=== PATIENT | female | born 1940 | race Caucasian/White ===

== ENCOUNTER 2016-10-27 17:20 | Emergency (ER) | payer OTHER ==
[~2016-10-27 17:20] MED LIST: BACLOFEN10 MG PO; BAYER ASPIRIN325 M1 PO; BENAZEPRIL HCL40 MG PO; CALCIUM CARBON500 MG PO; CINNAMON500 MG PO; CLOBETASOL PRO0.055; COQ-10400 MG PO; CR-PLUS500 MCG PO; FISH OIL1000 M1 PO; GABAPENTIN300 MG PO; HYDROCHLOROTHIA25 MG PO; KLOR-CON 1010 MEQ PO; LIPITOR40 MG PO; MAGNESIUM400 M1 PO; METHOCARBAMOL500 MG PO; NEURONTIN300 MG PO; NORVASC5 MG PO; OMEPRAZOLE20 M1 PO; TUMERIC; VALERIAN ROOT PO; VITAMIN C500 M1 PO; VITAMIN D-31000 UNIT PO; VITAMIN K100 MCG PO; VITAPULSE; ZINC; [UNRECOGNIZED DRUG - OTHER]; [UNRECOGNIZED DRUG - OTHER] PO
--- NOTE | 2016-10-27 20:07 | ED ORDER SUMMARY ---
..... Patient: ANTOINETTE KAUR OrderSheet [facility] VisitID: [id number] [address] [place] [address] 76y, F Registration Date/Time: 10/27/2016 ORDER SHEET Weight: 99.7 kg (stated) Allergies: Darvocet-N 50, Percocet GENERAL ORDERS: MEDICATION ORDERS: Prednisone PO 60 mg (NOW) (20:01 10/27/2016 Xenia AMBRIZ) (20:11 Mahin Loo) IV FLUIDS: ORDER SHEET NOTES: [Electronically signed by Abundio Valladares R.N. (20:22 10/27/2016)] [Electronically signed by Hilario Calderon MD (22:32 11/01/2016)] [Electronically locked/signed by Abundio Valladares R.N. (20:22 10/27/2016)]
--- NOTE | 2016-10-27 20:07 | ED ORDER SUMMARY ---
..... Patient: ANTOINETTE KAUR OrderSheet [facility] VisitID: [id number] [address] [place] [address] 76y, F Registration Date/Time: 10/27/2016 ORDER SHEET Weight: 99.7 kg (stated) Allergies: Darvocet-N 50, Percocet GENERAL ORDERS: MEDICATION ORDERS: Prednisone PO 60 mg (NOW) (20:01 10/27/2016 Xenia AMBRIZ) (20:11 Mahin Loo) IV FLUIDS: ORDER SHEET NOTES: [Electronically signed by Abundio Valladares R.N. (20:22 10/27/2016)] [Electronically signed by Hilario Calderon MD (22:32 11/01/2016)] [Electronically locked/signed by Abundio Valladares R.N. (20:22 10/27/2016)]
--- NOTE | 2016-10-27 20:07 | ED NURSING NOTES ---
Clinical Report - Nurses [facility] [address] [place] [address] 10/27/2016 17:21 Patient: ANTOINETTE KAUR TRIAGE Triage time 18:18 Oct 27 2016. Acuity: LEVEL 5. Chief Complaint: SKIN RASH and SKIN LESION and TENDER AREA and . reaction to a med. Alert. No acute distress. --18:23 Maria Eugenia Peraza R.N. 18:17 10/27/16. BP: 157/62. HR: 80. RR: 18. O2 saturation: 97%. Temp: 98.2 F. Pain level now 08/04. --18:23 Maria Eugenia Peraza R.N. Weight: 99.7 kg stated. Height/Length: 62 inches Per Patient. BMI: 40.2. --18:17 Maria Eugenia Peraza R.N. Medications Albuterol Sulfate Inhalation. Flexeril Oral 10 mg, at bedtime. Gabapentin Oral 150mg , 2x a day. HCTZ 12.5 mg, daily. Lotensin Oral 40 mg, daily. Meclizine HCl Oral 50 mg, daily as needed. Nasacort AQ Nasal, started 2 days ago. Prilosec Oral 40 mg, daily. Spiriva HandiHaler Inhalation. Tylenol/Codeine #3 Oral 1 tablet, 4x a day as needed. Vistaril Oral 50 mg, at bedtime as needed. --18:21 Maria Eugenia Peraza R.N. Allergies Darvocet-N 50. Percocet. --18:21 Maria Eugenia Peraza R.N. History Primary physician (Dr. Friedman). ( Rash and cracked skin all over hands, ankles up to her knees. Red sores, painful. Started 3 weeks ago. Today it has spread to her lips and now she is concerned.). Reported as generalized in location. It is described as painful. She has recently taken medication. Treatment OUTREACH EDUCATOR: (has used home remedies and OTC topical, no change). PAST MEDICAL HX: Immunizations: has received pneumonia vaccine; seasonal influenza. SOCIAL HX: Former smoker. Occasional alcohol use. History of drug use: marijuana. No infectious disease exposure. FALL RISK ASSESSMENT: Fall risk assessment completed. No fall risk identified. NUTRITIONAL RISK ASSESSMENT: The nutritional risk assessment revealed no deficiencies. FUNCTIONAL ASSESSMENT: Functional assessment: no impairments noted. LEARNING NEEDS ASSESSMENT: The learning needs assessment revealed no barriers. SKIN INTEGRITY ASSESSMENT: Skin integrity risk assessment completed. No skin integrity risk identified. --18:23 Maria Eugenia Peraza R.N. PROBLEMS: Anemia. Allergic Reaction. COPD - Chronic Obstructive Pulmonary Disease. Fall. Contusion. Bronchitis. GI Disease. Myofascial Strain. Tetanus Status. Neck Pain. Immunizations. LNMP - Last Normal Menstrual Period. Dyspnea. URI. Pneumonia. UTI - Urinary Tract Infection. Hypertension. Gastroesophageal Reflux Disease. --18:22 Maria Eugenia Peraza R.N. ADDITIONAL SURGERIES: Adenoidectomy. Appendectomy. Cholecystectomy. Hysterectomy. Knee Surgery. Oophorectomy. Salpingectomy. Surgeries on both legs. Tonsillectomy. Tonsillectomy & Adenoidectomy. --18:22 Maria Eugenia Peraza R.N. Interventions ID band on patient. To room. --18:23 Maria Eugenia Peraza R.N. NURSING PROGRESS NOTES 19:46 10/27/16. BP: 155/73. HR: 83. RR: 16. O2 saturation: 95%. Temp: 98.1 F. --19:46 Abundio Valladares R.N. The patient is calm and resting quietly. SKIN: The patient reports itching and swelling. Skin rash. Location- right arm and left arm. --19:47 Abundio Valladares R.N. 20:01 10/27/16. BP: 123/69. HR: 82. RR: 16. O2 saturation: 96%. --20:01 Abundio Valladares R.N. 20:11 10/27/2016 Prednisone PO Tablets 60 mg given. Allergies verified and confirmed 5 rights. --20:11 Abundio Valladares R.N. DISPOSITION / DISCHARGE Condition at departure: improved. The goals identified in the patient's plan of care were met. No learning barriers present. Reviewed medication(s). Patient verbalized understanding. Written instructions provided in Malaysian. The patient was discharged home and unaccompanied at time of discharge. She left the Emergency Department ambulatory and via private vehicle. Patient driving. FALL RISK ASSESSMENT: Fall risk assessment completed. No fall risk identified. --20:21 Abundio Valladares R.N. Departure time: 2020 PM. --20:21 Abundio Valladares R.N. Locked/Released at 10/27/2016 20:22 by Abundio Valladares R.N.
--- NOTE | 2016-10-27 20:07 | ED CLINICAL REPORT ---
Clinical Report - Physicians/Mid Levels [facility] [address] [place] [address] 10/27/2016 17:21 Patient: ANTOINETTE KAUR Time Seen: 19:48. HISTORY OF PRESENT ILLNESS Chief Complaint: SKIN RASH. (3 r hand. lots of hand dishes spread to other hand 7 days ago). Is still present and worsening. It was gradual in onset. It is described as itchy and painful. It has been located on the right upper extremity and left upper extremity. No cause has been identified. No recent medication or insect bite. Similar symptoms previously: None. REVIEW OF SYSTEMS No fever, chills, cough, difficulty breathing or chest pain. No abdominal pain. PAST HISTORY PCP: Mayi Mcnally PROBLEMS: Anemia. Allergic Reaction. COPD - Chronic Obstructive Pulmonary Disease. Fall. Contusion. Bronchitis. GI Disease. Myofascial Strain. Tetanus Status. Neck Pain. Immunizations. LNMP - Last Normal Menstrual Period. Dyspnea. URI. Pneumonia. UTI - Urinary Tract Infection. Hypertension. Gastroesophageal Reflux Disease. --18:22 Maria Eugenia Peraza R.N. ADDITIONAL SURGERIES: Adenoidectomy. Appendectomy. Cholecystectomy. Hysterectomy. Knee Surgery. Oophorectomy. Salpingectomy. Surgeries on both legs. Tonsillectomy. Tonsillectomy & Adenoidectomy. SOCIAL HISTORY Former smoker. ADDITIONAL NOTES The nursing notes have been reviewed. PHYSICAL EXAM Vital Signs: 10/27/2016 20:01 BP: 123/69. HR: 82. RR: 16. O2 saturation: 96%. 10/27/2016 19:46 BP: 155/73. HR: 83. RR: 16. O2 saturation: 95%. Temp: 98.1 F. 10/27/2016 18:17 BP: 157/62. HR: 80. RR: 18. O2 saturation: 97%. Temp: 98.2 F. Appearance: Alert. Patient in mild distress. ENT: Pharynx normal. Respiratory: No respiratory distress. Breath sounds normal. Abdomen: Nontender. No organomegaly. Skin: There is warmth, induration, thickening, inflammation and crusting. (Pt has patches of inflamed erythamatous patches with scale but no bullae or petechiae. Most of these lesions are on the upper extemities but there are some on the lower extemities.). PROGRESS AND PROCEDURES Course of Care: Note, I intended for her to only get the triamcinolone cream. The cause of the dermatitis is not clear. This does not look like Pleitez Jaiden syndrome because of lack of blisters. Disposition: Discharged. CLINICAL IMPRESSION DERMATITIS. INSTRUCTIONS (FLORINDA OR BENADRYL FOR ITCH KAILASH CREAM FOR MOISTURIZING). Prescription Medications: Hydrocortisone 2.5% Cream: Apply to affected areas 2 times daily as needed. Dispense twenty (20) gm. No refills. Substitution is permissible. Triamcinolone 0.1% Cream: Apply to affected areas 2 times daily as needed. Dispense fifteen (15) gm. No refills. Prednisone 20 mg: take 2 orally every day for 5 days. Dispense ten (10). No refills. Follow-up: Follow up with your doctor in five days. Call for an appointment. Understanding of the discharge instructions verbalized by patient. (Electronically signed by Hilario Calderon MD 11/01/2016 22:32)
--- NOTE | 2016-10-27 20:07 | ED CLINICAL REPORT ---
Clinical Report - Physicians/Mid Levels [facility] [address] [place] [address] 10/27/2016 17:21 Patient: ANTOINETTE KAUR Time Seen: 19:48. HISTORY OF PRESENT ILLNESS Chief Complaint: SKIN RASH. (3 r hand. lots of hand dishes spread to other hand 7 days ago). Is still present and worsening. It was gradual in onset. It is described as itchy and painful. It has been located on the right upper extremity and left upper extremity. No cause has been identified. No recent medication or insect bite. Similar symptoms previously: None. REVIEW OF SYSTEMS No fever, chills, cough, difficulty breathing or chest pain. No abdominal pain. PAST HISTORY PCP: Mayi Mcnally PROBLEMS: Anemia. Allergic Reaction. COPD - Chronic Obstructive Pulmonary Disease. Fall. Contusion. Bronchitis. GI Disease. Myofascial Strain. Tetanus Status. Neck Pain. Immunizations. LNMP - Last Normal Menstrual Period. Dyspnea. URI. Pneumonia. UTI - Urinary Tract Infection. Hypertension. Gastroesophageal Reflux Disease. --18:22 Maria Eugenia Peraza R.N. ADDITIONAL SURGERIES: Adenoidectomy. Appendectomy. Cholecystectomy. Hysterectomy. Knee Surgery. Oophorectomy. Salpingectomy. Surgeries on both legs. Tonsillectomy. Tonsillectomy & Adenoidectomy. SOCIAL HISTORY Former smoker. ADDITIONAL NOTES The nursing notes have been reviewed. PHYSICAL EXAM Vital Signs: 10/27/2016 20:01 BP: 123/69. HR: 82. RR: 16. O2 saturation: 96%. 10/27/2016 19:46 BP: 155/73. HR: 83. RR: 16. O2 saturation: 95%. Temp: 98.1 F. 10/27/2016 18:17 BP: 157/62. HR: 80. RR: 18. O2 saturation: 97%. Temp: 98.2 F. Appearance: Alert. Patient in mild distress. ENT: Pharynx normal. Respiratory: No respiratory distress. Breath sounds normal. Abdomen: Nontender. No organomegaly. Skin: There is warmth, induration, thickening, inflammation and crusting. (Pt has patches of inflamed erythamatous patches with scale but no bullae or petechiae. Most of these lesions are on the upper extemities but there are some on the lower extemities.). PROGRESS AND PROCEDURES Course of Care: Note, I intended for her to only get the triamcinolone cream. The cause of the dermatitis is not clear. This does not look like Pleitez Jaiden syndrome because of lack of blisters. Disposition: Discharged. CLINICAL IMPRESSION DERMATITIS. INSTRUCTIONS (FLORINDA OR BENADRYL FOR ITCH KAILASH CREAM FOR MOISTURIZING). Prescription Medications: Hydrocortisone 2.5% Cream: Apply to affected areas 2 times daily as needed. Dispense twenty (20) gm. No refills. Substitution is permissible. Triamcinolone 0.1% Cream: Apply to affected areas 2 times daily as needed. Dispense fifteen (15) gm. No refills. Prednisone 20 mg: take 2 orally every day for 5 days. Dispense ten (10). No refills. Follow-up: Follow up with your doctor in five days. Call for an appointment. Understanding of the discharge instructions verbalized by patient. (Electronically signed by Hilario Calderon MD 11/01/2016 22:32)
--- NOTE | 2016-10-27 20:07 | ED NURSING NOTES ---
Clinical Report - Nurses [facility] [address] [place] [address] 10/27/2016 17:21 Patient: ANTOINETTE KAUR TRIAGE Triage time 18:18 Oct 27 2016. Acuity: LEVEL 5. Chief Complaint: SKIN RASH and SKIN LESION and TENDER AREA and . reaction to a med. Alert. No acute distress. --18:23 Maria Eugenia Peraza R.N. 18:17 10/27/16. BP: 157/62. HR: 80. RR: 18. O2 saturation: 97%. Temp: 98.2 F. Pain level now 08/04. --18:23 Maria Eugenia Peraza R.N. Weight: 99.7 kg stated. Height/Length: 62 inches Per Patient. BMI: 40.2. --18:17 Maria Eugenia Peraza R.N. Medications Albuterol Sulfate Inhalation. Flexeril Oral 10 mg, at bedtime. Gabapentin Oral 150mg , 2x a day. HCTZ 12.5 mg, daily. Lotensin Oral 40 mg, daily. Meclizine HCl Oral 50 mg, daily as needed. Nasacort AQ Nasal, started 2 days ago. Prilosec Oral 40 mg, daily. Spiriva HandiHaler Inhalation. Tylenol/Codeine #3 Oral 1 tablet, 4x a day as needed. Vistaril Oral 50 mg, at bedtime as needed. --18:21 Maria Eugenia Peraza R.N. Allergies Darvocet-N 50. Percocet. --18:21 Maria Eugenia Peraza R.N. History Primary physician (Dr. Friedman). ( Rash and cracked skin all over hands, ankles up to her knees. Red sores, painful. Started 3 weeks ago. Today it has spread to her lips and now she is concerned.). Reported as generalized in location. It is described as painful. She has recently taken medication. Treatment DIRECTOR FINANCIAL SERVICES: (has used home remedies and OTC topical, no change). PAST MEDICAL HX: Immunizations: has received pneumonia vaccine; seasonal influenza. SOCIAL HX: Former smoker. Occasional alcohol use. History of drug use: marijuana. No infectious disease exposure. FALL RISK ASSESSMENT: Fall risk assessment completed. No fall risk identified. NUTRITIONAL RISK ASSESSMENT: The nutritional risk assessment revealed no deficiencies. FUNCTIONAL ASSESSMENT: Functional assessment: no impairments noted. LEARNING NEEDS ASSESSMENT: The learning needs assessment revealed no barriers. SKIN INTEGRITY ASSESSMENT: Skin integrity risk assessment completed. No skin integrity risk identified. --18:23 Maria Eugenia Peraza R.N. PROBLEMS: Anemia. Allergic Reaction. COPD - Chronic Obstructive Pulmonary Disease. Fall. Contusion. Bronchitis. GI Disease. Myofascial Strain. Tetanus Status. Neck Pain. Immunizations. LNMP - Last Normal Menstrual Period. Dyspnea. URI. Pneumonia. UTI - Urinary Tract Infection. Hypertension. Gastroesophageal Reflux Disease. --18:22 Maria Eugenia Peraza R.N. ADDITIONAL SURGERIES: Adenoidectomy. Appendectomy. Cholecystectomy. Hysterectomy. Knee Surgery. Oophorectomy. Salpingectomy. Surgeries on both legs. Tonsillectomy. Tonsillectomy & Adenoidectomy. --18:22 Maria Eugenia Peraza R.N. Interventions ID band on patient. To room. --18:23 Maria Eugenia Peraza R.N. NURSING PROGRESS NOTES 19:46 10/27/16. BP: 155/73. HR: 83. RR: 16. O2 saturation: 95%. Temp: 98.1 F. --19:46 Abundio Valladares R.N. The patient is calm and resting quietly. SKIN: The patient reports itching and swelling. Skin rash. Location- right arm and left arm. --19:47 Abundio Valladares R.N. 20:01 10/27/16. BP: 123/69. HR: 82. RR: 16. O2 saturation: 96%. --20:01 Abundio Valladares R.N. 20:11 10/27/2016 Prednisone PO Tablets 60 mg given. Allergies verified and confirmed 5 rights. --20:11 Abundio Valladares R.N. DISPOSITION / DISCHARGE Condition at departure: improved. The goals identified in the patient's plan of care were met. No learning barriers present. Reviewed medication(s). Patient verbalized understanding. Written instructions provided in Bahraini. The patient was discharged home and unaccompanied at time of discharge. She left the Emergency Department ambulatory and via private vehicle. Patient driving. FALL RISK ASSESSMENT: Fall risk assessment completed. No fall risk identified. --20:21 Abundio Valladares R.N. Departure time: 2020 PM. --20:21 Abundio Valladares R.N. Locked/Released at 10/27/2016 20:22 by Abundio Valladares R.N.
--- NOTE | 2016-11-01 22:33 | ED MAR SUMMARY ---
..... Medication Administration Record [facility] [address] [place] [address] Patient: ANTOINETTE KAUR Visit ID: [id number] 76y, F Weight: 99.7 kg Height/Length: 62 in BMI: 40.2 ALLERGIES: Darvocet-N 50, Percocet Given 20:11 10/27/2016 Abundio Valladares R.N. Medication Administered: PREDNISONE [PO], Dose: 60 mg Tablets PO. Medication Ordered: Prednisone PO 60 mg (NOW).
--- NOTE | 2016-11-01 22:33 | ED DISCHARGE INSTRUCTIONS ---
Patient: ANTOINETTE KAUR General Instructions [facility] VisitID: [id number] [address] [place] [address] 76y, F Registration Date/Time: 10/27/2016 DERMATITIS. INSTRUCTIONS (FLORINDA OR BENADRYL FOR ITCH KAILASH CREAM FOR MOISTURIZING). Prescription Medications: Hydrocortisone 2.5% Cream: Apply to affected areas 2 times daily as needed. Dispense twenty (20) gm. No refills. Substitution is permissible. Triamcinolone 0.1% Cream: Apply to affected areas 2 times daily as needed. Dispense fifteen (15) gm. No refills. Prednisone 20 mg: take 2 orally every day for 5 days. Dispense ten (10). No refills. Follow-up: Follow up with your doctor in five days. Call for an appointment. Understanding of the discharge instructions verbalized by patient. (Electronically signed by Hilario Calderon MD 11/01/2016 22:32)
--- NOTE | 2016-11-01 22:33 | ED MED RECONCILIATION SUMMARY ---
Patient: ANTOINETTE KAUR Medication Reconciliation Report [facility] VisitID: [id number] [place] [address] 76y, F Registration Date/Time: 10/27/2016 Weight: 99.7 kg Height/Length: 62 in. BMI: 40.2 ALLERGIES: Darvocet-N 50, Percocet The patient's Home Medications are listed below: THE FOLLOWING MEDICATIONS NEED TO BE RECONCILED: Albuterol Sulfate Inhalation Flexeril Oral 10 mg, at bedtime Gabapentin Oral 150mg , 2x a day HCTZ 12.5 mg, daily Lotensin Oral 40 mg, daily Meclizine HCl Oral 50 mg, daily Nasacort AQ Nasal Prilosec Oral 40 mg, daily Spiriva HandiHaler Inhalation Tylenol/Codeine #3 Oral 1 tablet, 4x a day Vistaril Oral 50 mg, at bedtime The source(s) of the original Home Medication information: Not obtained. The following Medications were given to the patient in the Emergency Department: Prednisone [PO] PO 60 mg, administered: 10/27/2016 8:11:00 PM The following Medications were prescribed to the patient: Hydrocortisone 2.5% Cream: Apply to affected areas 2 times daily as needed. Dispense twenty (20) gm. No refills. Substitution is permissible. -- Hilario Calderon MD Triamcinolone 0.1% Cream: Apply to affected areas 2 times daily as needed. Dispense fifteen (15) gm. No refills. -- Hilario Calderon MD Prednisone 20 mg: take 2 orally every day for 5 days. Dispense ten (10). No refills. -- Hilario Calderon MD
--- NOTE | 2016-11-01 22:33 | ED DISCHARGE INSTRUCTIONS ---
Patient: ANTOINETTE KAUR General Instructions [facility] VisitID: [id number] [address] [place] [address] 76y, F Registration Date/Time: 10/27/2016 DERMATITIS. INSTRUCTIONS (FLORINDA OR BENADRYL FOR ITCH KAILASH CREAM FOR MOISTURIZING). Prescription Medications: Hydrocortisone 2.5% Cream: Apply to affected areas 2 times daily as needed. Dispense twenty (20) gm. No refills. Substitution is permissible. Triamcinolone 0.1% Cream: Apply to affected areas 2 times daily as needed. Dispense fifteen (15) gm. No refills. Prednisone 20 mg: take 2 orally every day for 5 days. Dispense ten (10). No refills. Follow-up: Follow up with your doctor in five days. Call for an appointment. Understanding of the discharge instructions verbalized by patient. (Electronically signed by Hilario Calderon MD 11/01/2016 22:32)
--- NOTE | 2016-11-01 22:33 | ED MED RECONCILIATION SUMMARY ---
Patient: ANTOINETTE KAUR Medication Reconciliation Report [facility] VisitID: [id number] [place] [address] 76y, F Registration Date/Time: 10/27/2016 Weight: 99.7 kg Height/Length: 62 in. BMI: 40.2 ALLERGIES: Darvocet-N 50, Percocet The patient's Home Medications are listed below: THE FOLLOWING MEDICATIONS NEED TO BE RECONCILED: Albuterol Sulfate Inhalation Flexeril Oral 10 mg, at bedtime Gabapentin Oral 150mg , 2x a day HCTZ 12.5 mg, daily Lotensin Oral 40 mg, daily Meclizine HCl Oral 50 mg, daily Nasacort AQ Nasal Prilosec Oral 40 mg, daily Spiriva HandiHaler Inhalation Tylenol/Codeine #3 Oral 1 tablet, 4x a day Vistaril Oral 50 mg, at bedtime The source(s) of the original Home Medication information: Not obtained. The following Medications were given to the patient in the Emergency Department: Prednisone [PO] PO 60 mg, administered: 10/27/2016 8:11:00 PM The following Medications were prescribed to the patient: Hydrocortisone 2.5% Cream: Apply to affected areas 2 times daily as needed. Dispense twenty (20) gm. No refills. Substitution is permissible. -- Hilario Calderon MD Triamcinolone 0.1% Cream: Apply to affected areas 2 times daily as needed. Dispense fifteen (15) gm. No refills. -- Hilario Calderon MD Prednisone 20 mg: take 2 orally every day for 5 days. Dispense ten (10). No refills. -- Hilario Calderon MD
--- NOTE | 2016-11-01 22:33 | ED MAR SUMMARY ---
..... Medication Administration Record [facility] [address] [place] [address] Patient: ANTOINETTE KAUR Visit ID: [id number] 76y, F Weight: 99.7 kg Height/Length: 62 in BMI: 40.2 ALLERGIES: Darvocet-N 50, Percocet Given 20:11 10/27/2016 Abundio Valladares R.N. Medication Administered: PREDNISONE [PO], Dose: 60 mg Tablets PO. Medication Ordered: Prednisone PO 60 mg (NOW).
== END 2016-10-27 20:19 | disposition home or self-care (01) ==
LOC: ED SRH 17:20
DX: L30.9 Dermatitis, unspecified (principal); J44.9 Chronic obstructive pulmonary disease, unspecified; K21.9 Gastro-esophageal reflux disease without esophagitis; I10 Essential (primary) hypertension; Z88.5 Allergy status to narcotic agent

== ENCOUNTER 2017-01-29 11:18 | Emergency (ER) | payer OTHER ==
--- NOTE | 2017-01-29 12:00 | DIAGNOSTIC IMAGING REPORT ---
PROCEDURE: XR CHEST 1 VIEW INDICATION: WEAKNESS TECHNIQUE: Portable AP view 11:35 a.m. COMPARISON: Chest 05/04/2014 and 01/17/2016 FINDINGS: Lungs are clear. Heart and mediastinum are normal. Thorax is normal. IMPRESSION: 1. Negative chest.
--- NOTE | 2017-01-29 13:10 | DIAGNOSTIC IMAGING REPORT ---
PROCEDURE: CT HEAD WITHOUT CONTRAST INDICATION: WEAKNESS CONFUSION TECHNIQUE: Axial CT images were acquired through the head. Coronal and sagittal reformations were created. COMPARISON: 12/12/2010 FINDINGS: Mild cerebral cortical atrophy. Minor scattered patchy hypodensity in the periventricular and subcortical white matter. No intracranial hemorrhage or extraaxial fluid collections. Ventricles are normal in size, shape and position. There is no mass, mass effect or midline shift. The cain-white matter differentiation is normal. There is no edema. Trace calcific atherosclerosis of the intracranial internal carotid arteries. The calvarium is intact. Mild hyperostosis frontalis interna. The paranasal sinuses and mastoid air cells are normally aerated. The extracranial soft tissues and orbits are normal. IMPRESSION: 1. No CT evidence of acute intracranial process. 2. Age related involutional and mild white matter changes of chronic microvascular ischemia. 3. Findings discussed with Dr. Brewer at [address] scans at this facility use dose modulation, iterative reconstruction, and/or weight-based dosing when appropriate to reduce radiation dose to as low as reasonably achievable.
--- NOTE | 2017-01-29 16:14 | DIAGNOSTIC IMAGING REPORT ---
PROCEDURE: MR BRAIN WITHOUT CONTRAST INDICATION: ALTERED MENTAL STATUS TECHNIQUE: Multiplanar multisequence MRI imaging of the brain without contrast. COMPARISON: Head CT 01/30/16 FINDINGS: The midline structures are normally formed. The ventricular system is normal in size. Basal cisterns are patent. Flow voids in the major intracranial vessels are normal. Minor scattered patchy hypodensity in the periventricular and subcortical white matter No restricted diffusion to suggest acute ischemia. No evidence of acute or chronic intraparenchymal or extra-axial hemorrhage. No mass, mass effect, or midline shift. Normal signal in the visible bones. The sinuses are normally aerated. Visible extracranial soft tissues including the orbits are normal. IMPRESSION: 1. No MRI evidence of acute intracranial process. 2. Age related involutional and mild white matter changes of chronic microvascular ischemia.
--- NOTE | 2017-01-29 17:20 | DIAGNOSTIC IMAGING REPORT ---
PROCEDURE: US BILATERAL CAROTID DOPPLER INDICATION: WEAKNESS TECHNIQUE: Color Doppler duplex imaging of the carotid and vertebral vessels. COMPARISON: None. FINDINGS: Bilateral intimal thickening in the bifurcations and the carotid bulbs. Right carotid system: No significant stenosis visualized. The waveforms are normal. There is a focal 4-5 mm calcified plaque in the right carotid bulb. Left carotid system: No significant stenosis visualized. The waveforms are normal. Vertebral System: Antegrade vertebral artery flow bilaterally. Right common carotid artery peak systolic velocity 86 cm/second. Right internal carotid artery peak systolic velocity 104 cm/second. Right external carotid artery peak systolic velocity 101 cm/second. Right mbdhvmrz-uc-ugtmyf carotid artery ratio 1.2 Right vertebral artery peak systolic velocity 67 cm/second. Left common carotid artery peak systolic velocity 93 cm/second. Left internal carotid artery peak systolic velocity 111 cm/second. Left external carotid artery peak systolic velocity 136 cm/second. Left uneiicim-rd-gwxrzp carotid artery ratio 1.2 Left vertebral artery peak systolic velocity 89 cm/second. IMPRESSION: 1. No hemodynamically significant stenosis in either carotid system. 2. Antegrade vertebral artery flow bilaterally. Velocity criteria are extrapolated from diameter data as defined by the Society of Radiologists in Ultrasound Consensus Conference, Radiology 2003; 229; 340-346.
--- NOTE | 2017-01-29 17:20 | DIAGNOSTIC IMAGING REPORT ---
PROCEDURE: US BILATERAL CAROTID DOPPLER INDICATION: WEAKNESS TECHNIQUE: Color Doppler duplex imaging of the carotid and vertebral vessels. COMPARISON: None. FINDINGS: Bilateral intimal thickening in the bifurcations and the carotid bulbs. Right carotid system: No significant stenosis visualized. The waveforms are normal. There is a focal 4-5 mm calcified plaque in the right carotid bulb. Left carotid system: No significant stenosis visualized. The waveforms are normal. Vertebral System: Antegrade vertebral artery flow bilaterally. Right common carotid artery peak systolic velocity 86 cm/second. Right internal carotid artery peak systolic velocity 104 cm/second. Right external carotid artery peak systolic velocity 101 cm/second. Right llptgvln-sm-imwhel carotid artery ratio 1.2 Right vertebral artery peak systolic velocity 67 cm/second. Left common carotid artery peak systolic velocity 93 cm/second. Left internal carotid artery peak systolic velocity 111 cm/second. Left external carotid artery peak systolic velocity 136 cm/second. Left czuuztgr-nk-jjzrve carotid artery ratio 1.2 Left vertebral artery peak systolic velocity 89 cm/second. IMPRESSION: 1. No hemodynamically significant stenosis in either carotid system. 2. Antegrade vertebral artery flow bilaterally. Velocity criteria are extrapolated from diameter data as defined by the Society of Radiologists in Ultrasound Consensus Conference, Radiology 2003; 229; 340-346.
--- NOTE | 2017-01-29 17:27 | ED ORDER SUMMARY ---
..... Patient: ANTOINETTE KAUR OrderSheet [facility] VisitID: [id number] [address] [place] [address] 76y, F Registration Date/Time: 01/29/2017 ORDER SHEET Weight: 106.5 kg (stated) Allergies: Darvocet-N 50, Percocet GENERAL ORDERS: Chest 1V Urgent (11:34 01/29/2017 Fabio AMBRIZ) (Ack 11:38 Baljit) (11:51 DDean R.N.) CT Head wo Cont Urgent (11:34 01/29/2017 Fabio AMBRIZ) (Ack 11:38 Baljit) (12:33 DDean R.N.) Oven Drier Tender (Continuous) (11:34 01/29/2017 Fabio AMBRIZ) (11:50 DDean R.N.) CBC w Diff Urgent (11:35 01/29/2017 Fabio AMBRIZ) (Ack 11:38 Baljit) (11:50 DDean R.N.) CMP Urgent (11:35 01/29/2017 Fabio AMBRIZ) (Ack 11:38 Baljit) (11:50 DDean R.N.) UA-Culture if indicated Urgent (11:35 01/29/2017 Fabio AMBRIZ) (Ack 11:38 Baljit) (12:46 DDean R.N.) CPK Urgent (11:35 01/29/2017 Fabio AMBRIZ) (Ack 11:38 Baljit) (11:50 DDean R.N.) Troponin-I Urgent (11:35 01/29/2017 Fabio AMBRIZ) (Ack 11:38 Baljit) (11:50 DDean R.N.) PT with INR Urgent (11:35 01/29/2017 Fabio AMBRIZ) (Ack 11:38 Baljit) (11:50 DDean R.N.) PTT Urgent (11:35 01/29/2017 Fabio AMBRIZ) (Ack 11:38 Baljit) (11:50 DDean R.N.) Amylase Urgent (11:35 01/29/2017 Fabio AMBRIZ) (Ack 11:38 Baljit) (11:50 DDean R.N.) Lipase Urgent (11:35 01/29/2017 Fabio AMBRIZ) (Ack 11:38 Baljit) (11:50 DDean R.N.) Oxygen (2 L/min) (NC) (11:35 01/29/2017 Fabio AMBRIZ) (11:50 DDean R.N.) Pulse oximeter (11:35 01/29/2017 Fabio AMBRIZ) (11:50 DDean R.N.) EKG - ER Stat (11:35 01/29/2017 Fabio AMBRIZ) (Ack 11:38 Baljit) (11:50 DDean R.N.) Urine Drug Screen Urgent (11:41 01/29/2017 Fabio AMBRIZ) (Ack 11:52 Baljit) (12:46 DDean R.N.) MRI Brain w/wo IACS wo Cont (Not Applicable) Urgent (14:20 01/29/2017 Fabio ABMRIZ) (Ack 14:37 Baljit) (15:20 DDean R.N.) US Carotid Doppler Bilat Urgent (14:22 01/29/2017 Fabio AMBRIZ) (Ack 14:37 Baljit) (17:27 DDean R.N.) MEDICATION ORDERS: IV FLUIDS: IV Saline Lock (11:35 01/29/2017 Fabio AMBRIZ) (11:50 DDean R.N.) ORDER SHEET NOTES: [Electronically signed by Joya Ledezma R.N. (20:55 01/29/2017)] [Electronically signed by Luis Brewer MD (21:27 01/29/2017)] [Electronically locked/signed by Joya Ledezma R.N. (20:55 01/29/2017)]
--- NOTE | 2017-01-29 17:27 | ED ORDER SUMMARY ---
..... Patient: ANTOINETTE KAUR OrderSheet [facility] VisitID: [id number] [address] [place] [address] 76y, F Registration Date/Time: 01/29/2017 ORDER SHEET Weight: 106.5 kg (stated) Allergies: Darvocet-N 50, Percocet GENERAL ORDERS: Chest 1V Urgent (11:34 01/29/2017 Fabio AMBRIZ) (Ack 11:38 Baljit) (11:51 DDean R.N.) CT Head wo Cont Urgent (11:34 01/29/2017 Fabio AMBRIZ) (Ack 11:38 Baljit) (12:33 DDean R.N.) Children'S Ministry Director (Continuous) (11:34 01/29/2017 Fabio AMBRIZ) (11:50 DDean R.N.) CBC w Diff Urgent (11:35 01/29/2017 Fabio AMBRIZ) (Ack 11:38 Baljit) (11:50 DDean R.N.) CMP Urgent (11:35 01/29/2017 Fabio AMBRIZ) (Ack 11:38 Baljit) (11:50 DDean R.N.) UA-Culture if indicated Urgent (11:35 01/29/2017 Fabio AMBRIZ) (Ack 11:38 Baljit) (12:46 DDean R.N.) CPK Urgent (11:35 01/29/2017 Fabio AMBRIZ) (Ack 11:38 Baljit) (11:50 DDean R.N.) Troponin-I Urgent (11:35 01/29/2017 Fabio AMBRIZ) (Ack 11:38 Baljit) (11:50 DDean R.N.) PT with INR Urgent (11:35 01/29/2017 Fabio AMBRIZ) (Ack 11:38 Baljit) (11:50 DDean R.N.) PTT Urgent (11:35 01/29/2017 Fabio AMBRIZ) (Ack 11:38 Baljit) (11:50 DDean R.N.) Amylase Urgent (11:35 01/29/2017 Fabio AMBRIZ) (Ack 11:38 Baljit) (11:50 DDean R.N.) Lipase Urgent (11:35 01/29/2017 Fabio AMBRIZ) (Ack 11:38 Baljit) (11:50 DDean R.N.) Oxygen (2 L/min) (NC) (11:35 01/29/2017 Fabio AMBRIZ) (11:50 DDean R.N.) Pulse oximeter (11:35 01/29/2017 Fabio AMBRIZ) (11:50 DDean R.N.) EKG - ER Stat (11:35 01/29/2017 Fabio AMBRIZ) (Ack 11:38 Baljit) (11:50 DDean R.N.) Urine Drug Screen Urgent (11:41 01/29/2017 Fabio AMBRIZ) (Ack 11:52 Baljit) (12:46 DDean R.N.) MRI Brain w/wo IACS wo Cont (Not Applicable) Urgent (14:20 01/29/2017 Fabio AMBRIZ) (Ack 14:37 Baljit) (15:20 DDean R.N.) US Carotid Doppler Bilat Urgent (14:22 01/29/2017 Fabio AMBRIZ) (Ack 14:37 Baljit) (17:27 DDean R.N.) MEDICATION ORDERS: IV FLUIDS: IV Saline Lock (11:35 01/29/2017 Fabio AMBRIZ) (11:50 DDean R.N.) ORDER SHEET NOTES: [Electronically signed by Joya Ledezma R.N. (20:55 01/29/2017)] [Electronically signed by Luis Brewer MD (21:27 01/29/2017)] [Electronically locked/signed by Joya Ledezma R.N. (20:55 01/29/2017)]
--- NOTE | 2017-01-29 17:27 | ED NURSING NOTES ---
Clinical Report - Nurses [facility] [address] [place] [address] 01/29/2017 11:17 Patient: ANTOINETTE KAUR TRIAGE Triage time 1117. Acuity: LEVEL 3. Chief Complaint: (Pt in with who was worried that pt may be having a stroke. Pt c/o weakness, and that she has been "dropping things" for last 4 hours.). 11:17. CHAPITO COMA SCORE: Eldon Coma Scale: 15- eyes open spontaneously (4); best verbal response- oriented x 4 (5); best motor response- obeys commands (6). --11:26 Danette Nguyen R.N. 11:17 01/29/17. BP: 151/102. HR: 63. RR: 22. O2 saturation: 95% on room air. Temp: 98.3 F. Pain level now: 02/02. --11:26 Danette Nguyen R.N. Weight: 106.5 kg stated. Height/Length: 62 inches Per Patient. BMI: 43. --11:19 Danette Nguyen R.N. Medications Doesn't remember- [facility] [place]. --11:19 Danette Nguyen R.N. Naltrexone took 1 tablet about 10am ((daughters meds) ). --11:42 Joya Ledezma R.N. Pro-Air 2 puffs every 4-6 hours . --11:53 Joya Ledezma R.N. Hydrochtisone 2.5% cream BID , 2x a day. --11:54 Joya Ledezma R.N. AmLODIPine Besylate Oral 5 mg, 2x a day. Benazepril HCl Oral 40mg , daily. Flovent HFA Inhalation 220 mcg, 2x a day. Gabapentin Oral 300 mg, 1 in am, 3 at HS. Potassium Chloride ER Oral (Tablet Extended Release 10 meq) 1 tablet, daily . --11:54 Jyoa Ledezma R.N. The following entry was struck by Joya Ledezma R.N., 11:39 (01/29/17) Reason - other. <<STRICKEN ENTRY-- Nadolol Oral (took 1 tablet of her daughters about 10am. ). --11:37 Joya Ledezma R.N. --END STRIKE>>. Allergies Darvocet-N 50. Percocet. --11:51 Joya Ledezma R.N. History Arrived by private vehicle. Historian: patient. Accompanied by spouse. Primary physician (jocelyn dior). 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 The patient has had weakness. ( Pt states that she has been feeling depressed and was crying. took 1 tablet about 15min prior to arrival). SOCIAL HX: Never smoker. Occasional alcohol use. --11:26 Danette Nguyen R.N. Interventions ID band on patient. To treatment room. --11:26 Danette Nguyen R.N. PHYSICAL ASSESSMENT 11:17. To room via wheelchair. Patient gowned. GENERAL / NEURO / PSYCH: Alert. Oriented X 4. Appears anxious. The patient has had weakness. HEENT: No facial asymmetry noted. RESPIRATORY: Respirations not labored. Chest nontender. GI / : ( nausea without vomiting). Abdomen soft. SKIN: Skin is warm and dry. --11:22 Danette Nguyen R.N. NURSING PROGRESS NOTES 11:17. Patient gowned. Head of bed elevated. Patient identifiers checked. Call light placed in reach. Side rails up. Bed placed in lowest position. Patient ready for evaluation- chart flagged. --11:21 Danette Nguyen R.N. 11:23 01/29/2017 Site #1 started via IV in the left hand with an 20g angiocath, with aseptic technique and good blood return; one attempt. Blood drawn: rainbow set. Labeled in the presence of the patient and sent to the lab. Saline lock flushed with 10 mL saline. --11:23 Danette Nguyen R.N. ( Medication list requested from [employer].). --11:27 Demetra Vera 11:23. Blood samples drawn. (drawn with IV start, sent to lab). --11:28 Joya Ledezma R.N. 11:30 01/29/17. BP: 139/60. HR: 57. RR: 14. O2 saturation: 94% on room air. Temp: deferred. Pain level now: 4/10. --11:31 Joya Ledezma R.N. 11:48 01/29/17. Portable chest x-ray ordered, performed and shown to the ED physician. --11:48 Joya Ledezma R.N. EKG time: (11:47 AM). EKG was performed by a tech and shown to the ED physician. --12:13 Demetra Vera 12:00 01/29/17. BP: 135/44. HR: 71. RR: 22. O2 saturation: 95% on nasal cannula at 2 liters/minute. Temp: deferred. Additional comments: ERMD in talking with pt and spouse. pt tearful, talking about depression and loosing job recently . --12:16 Joya Ledezma R.N. 12:18. Patient transported to CT by stretcher with tech. --12:33 Joya Ledezma R.N. 12:32. Patient returned from [place] by stretcher with tech. --12:33 Joya Ledezma R.N. 12:40. 10 fr in/out catheterization. During procedure hand hygiene observed and sterile equipment and aseptic technique used. Return of yellow-colored urine. It was a complicated placement. She tolerated procedure well. --12:44 Joya Ledezma R.N. 12:46 01/29/17. BP: 120/54. HR: 61. RR: 14. O2 saturation: 99% on nasal cannula at 2 liters/minute. Temp: deferred. Pain level now: 0/10. --12:50 Joya Ledezma R.N. 13:30 pt talking and laughing with daughter, waiting for lab results. given warm blanket. --14:05 Joya Ledezma R.N. 14:00 01/29/17. BP: 133/43. HR: 48. RR: 14. O2 saturation: 96% on nasal cannula at 3 liters/minute. Temp: deferred. Pain level now: 0/10. --14:20 Joya Ledezma R.N. 14:10 Pt dozing when not arroused. pt was attempting to sit on side of bed due to back pain, moved pt into a Chanelle - Chair, states much better. --14:20 Joya Ledezma R.N. 14:10 Pt was able to ambulated 3 steps to chair with assistance. --14:22 Joya Ledezma R.N. 14:24 01/29/17. ( Pt and family given MRI paperwork). --14:24 Joya Ledezma R.N. 14:39 01/29/17. Patient transported to [facility] by wheelchair with tech. --14:39 Bea Zavala R.N. late entry - 14:30. ( Pt up to BSC voided 150cc yellow urine). --15:20 Joya Ledezma R.N. 15:45 01/29/17. Patient returned from MRI by wheelchair with tech. --15:45 Joya Ledezma R.N. 15:45 01/29/17. BP: 152/86. HR: 58. RR: 16. O2 saturation: 98% on nasal cannula at 3 liters/minute. Temp: deferred. Pain level now: 0/10. --15:46 Joya Ledezma R.N. 15:46 01/29/17. CHAPITO COMA SCORE: Chapito Coma Scale: 15- eyes open spontaneously (4); best verbal response- oriented x 4 (5); best motor response- obeys commands (6). --15:46 Joya Ledezma R.N. 15:47 01/29/17. ( US here to do carotid doppler). --15:47 Joya Ledezma R.N. US still in room. family at bedside. --16:19 Joya Ledezma R.N. 17:05. ( Pt up to BSC, voided 150cc light yellow urine. waiting for radiologist report. family at bedside). --17:12 Joya Ledezma R.N. 17:05 01/29/17. BP: 132/46. HR: 59. RR: 16. O2 saturation: 100%. Temp: deferred. Pain level now: 0/10. --17:13 Joya Ledezma R.N. 17:27 01/29/2017 Site #1 removed upon discharge. Pressure dressing applied. --17:27 Joya Ledezma R.N. 17:28 01/29/2017 IV Saline Lock Drip IV Discontinued: bag #1 STOPPED upon discharge. Total amount infused: 0 mL. IV patency established. IV site checked: no pain, redness, or swelling. IV flushed thoroughly. --17:28 Joya Ledezma R.N. 17:35 ERMD in to talk with daughter regarding findings are follow up. --20:55 Joya Ledezma R.N. 17:50 Pt assisted with dressing, and into w/c Up to Bathroom to void, prior to discharge. --20:55 Joya Ledezma R.N. DISPOSITION / DISCHARGE 18:10. Condition at departure: improved and stable. No learning barriers present. Discharge instructions provided and reviewed with the family. Reviewed medication(s) (ZOFRAN). Family verbalized understanding. Written instructions provided in [place]an. The patient was discharged home and accompanied by family. She left the Emergency Department in a wheelchair and via private vehicle. [facility] CHAPITO COMA SCORE: Eldon Coma Scale: 15- eyes open spontaneously (4); best verbal response- oriented x 4 (5); best motor response- obeys commands (6). --20:53 Joya Ledezma R.N. 18:00 01/29/17. BP: 148/50. HR: 65. RR: 16. O2 saturation: 100%. Temp: 98.4 F. Pain level now: 0/10. --20:53 Joya Ledezma R.N. Locked/Released at 01/29/2017 20:55 by Joya Ledezma R.N.
--- NOTE | 2017-01-29 17:27 | ED NURSING NOTES ---
Clinical Report - Nurses [facility] [address] [place] [address] 01/29/2017 11:17 Patient: ANTOINETTE KAUR TRIAGE Triage time 1117. Acuity: LEVEL 3. Chief Complaint: (Pt in with who was worried that pt may be having a stroke. Pt c/o weakness, and that she has been "dropping things" for last 4 hours.). 11:17. CHAPITO COMA SCORE: Galva Coma Scale: 15- eyes open spontaneously (4); best verbal response- oriented x 4 (5); best motor response- obeys commands (6). --11:26 Danette Nguyen R.N. 11:17 01/29/17. BP: 151/102. HR: 63. RR: 22. O2 saturation: 95% on room air. Temp: 98.3 F. Pain level now: 02/02. --11:26 Danette Nguyen R.N. Weight: 106.5 kg stated. Height/Length: 62 inches Per Patient. BMI: 43. --11:19 Danette Nguyen R.N. Medications Doesn't remember- call [facility] [place]. --11:19 Danette Nguyen R.N. Naltrexone took 1 tablet about 10am ((daughters meds) ). --11:42 Joya Ledezma R.N. Pro-Air 2 puffs every 4-6 hours . --11:53 Joya Ledezma R.N. Hydrochtisone 2.5% cream BID , 2x a day. --11:54 Joya Ledezma R.N. AmLODIPine Besylate Oral 5 mg, 2x a day. Benazepril HCl Oral 40mg , daily. Flovent HFA Inhalation 220 mcg, 2x a day. Gabapentin Oral 300 mg, 1 in am, 3 at HS. Potassium Chloride ER Oral (Tablet Extended Release 10 meq) 1 tablet, daily . --11:54 Joya Ledezma R.N. The following entry was struck by Joya Ledezma R.N., 11:39 (01/29/17) Reason - other. <<STRICKEN ENTRY-- Nadolol Oral (took 1 tablet of her daughters about 10am. ). --11:37 Joya Ledezma R.N. --END STRIKE>>. Allergies Darvocet-N 50. Percocet. --11:51 Joya Ledezma R.N. History Arrived by private vehicle. Historian: patient. Accompanied by spouse. Primary physician (jocelyn dior). 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 The patient has had weakness. ( Pt states that she has been feeling depressed and was crying. took 1 tablet about 15min prior to arrival). SOCIAL HX: Never smoker. Occasional alcohol use. --11:26 Danette Nguyen R.N. Interventions ID band on patient. To treatment room. --11:26 Danette Nguyen R.N. PHYSICAL ASSESSMENT 11:17. To room via wheelchair. Patient gowned. GENERAL / NEURO / PSYCH: Alert. Oriented X 4. Appears anxious. The patient has had weakness. HEENT: No facial asymmetry noted. RESPIRATORY: Respirations not labored. Chest nontender. GI / : ( nausea without vomiting). Abdomen soft. SKIN: Skin is warm and dry. --11:22 Danette Nguyen R.N. NURSING PROGRESS NOTES 11:17. Patient gowned. Head of bed elevated. Patient identifiers checked. Call light placed in reach. Side rails up. Bed placed in lowest position. Patient ready for evaluation- chart flagged. --11:21 Danette Nguyen R.N. 11:23 01/29/2017 Site #1 started via IV in the left hand with an 20g angiocath, with aseptic technique and good blood return; one attempt. Blood drawn: rainbow set. Labeled in the presence of the patient and sent to the lab. Saline lock flushed with 10 mL saline. --11:23 Danette Nguyen R.N. ( Medication list requested from [employer].). --11:27 Demetra Vera 11:23. Blood samples drawn. (drawn with IV start, sent to lab). --11:28 Joya Ledezma R.N. 11:30 01/29/17. BP: 139/60. HR: 57. RR: 14. O2 saturation: 94% on room air. Temp: deferred. Pain level now: 4/10. --11:31 Joya Ledezma R.N. 11:48 01/29/17. Portable chest x-ray ordered, performed and shown to the ED physician. --11:48 Joya Ledezma R.N. EKG time: (11:47 AM). EKG was performed by a tech and shown to the ED physician. --12:13 Demetra Vera 12:00 01/29/17. BP: 135/44. HR: 71. RR: 22. O2 saturation: 95% on nasal cannula at 2 liters/minute. Temp: deferred. Additional comments: ERMD in talking with pt and spouse. pt tearful, talking about depression and loosing job recently . --12:16 Joya Ledezma R.N. 12:18. Patient transported to CT by stretcher with tech. --12:33 Joya Ledezma R.N. 12:32. Patient returned from [place] by stretcher with tech. --12:33 Joya Ledezma R.N. 12:40. 10 fr in/out catheterization. During procedure hand hygiene observed and sterile equipment and aseptic technique used. Return of yellow-colored urine. It was a complicated placement. She tolerated procedure well. --12:44 Joya Ledezma R.N. 12:46 01/29/17. BP: 120/54. HR: 61. RR: 14. O2 saturation: 99% on nasal cannula at 2 liters/minute. Temp: deferred. Pain level now: 0/10. --12:50 Joya Ledezma R.N. 13:30 pt talking and laughing with daughter, waiting for lab results. given warm blanket. --14:05 Joya Ledezma R.N. 14:00 01/29/17. BP: 133/43. HR: 48. RR: 14. O2 saturation: 96% on nasal cannula at 3 liters/minute. Temp: deferred. Pain level now: 0/10. --14:20 Joya Ledezma R.N. 14:10 Pt dozing when not arroused. pt was attempting to sit on side of bed due to back pain, moved pt into a Chanelle - Chair, states much better. --14:20 Joya Ledezma R.N. 14:10 Pt was able to ambulated 3 steps to chair with assistance. --14:22 Joya Ledezma R.N. 14:24 01/29/17. ( Pt and family given MRI paperwork). --14:24 Joya Ledezma R.N. 14:39 01/29/17. Patient transported to [facility] by wheelchair with tech. --14:39 Bea Zavala R.N. late entry - 14:30. ( Pt up to BSC voided 150cc yellow urine). --15:20 Joya Ledezma R.N. 15:45 01/29/17. Patient returned from MRI by wheelchair with tech. --15:45 Joya Ledezma R.N. 15:45 01/29/17. BP: 152/86. HR: 58. RR: 16. O2 saturation: 98% on nasal cannula at 3 liters/minute. Temp: deferred. Pain level now: 0/10. --15:46 Joya Ledezma R.N. 15:46 01/29/17. CHAPITO COMA SCORE: Chapito Coma Scale: 15- eyes open spontaneously (4); best verbal response- oriented x 4 (5); best motor response- obeys commands (6). --15:46 Joya Ledezma R.N. 15:47 01/29/17. ( US here to do carotid doppler). --15:47 Joya Ledezma R.N. US still in room. family at bedside. --16:19 Joya Ledezma R.N. 17:05. ( Pt up to BSC, voided 150cc light yellow urine. waiting for radiologist report. family at bedside). --17:12 Joya Ledezma R.N. 17:05 01/29/17. BP: 132/46. HR: 59. RR: 16. O2 saturation: 100%. Temp: deferred. Pain level now: 0/10. --17:13 Joya Ledezma R.N. 17:27 01/29/2017 Site #1 removed upon discharge. Pressure dressing applied. --17:27 Joya Ledezma R.N. 17:28 01/29/2017 IV Saline Lock Drip IV Discontinued: bag #1 STOPPED upon discharge. Total amount infused: 0 mL. IV patency established. IV site checked: no pain, redness, or swelling. IV flushed thoroughly. --17:28 Joya Ledezma R.N. 17:35 ERMD in to talk with daughter regarding findings are follow up. --20:55 Joya Ledezma R.N. 17:50 Pt assisted with dressing, and into w/c Up to Bathroom to void, prior to discharge. --20:55 Joya Ledezma R.N. DISPOSITION / DISCHARGE 18:10. Condition at departure: improved and stable. No learning barriers present. Discharge instructions provided and reviewed with the family. Reviewed medication(s) (ZOFRAN). Family verbalized understanding. Written instructions provided in [place]i. The patient was discharged home and accompanied by family. She left the Emergency Department in a wheelchair and via private vehicle. [facility] CHAPITO COMA SCORE: Galva Coma Scale: 15- eyes open spontaneously (4); best verbal response- oriented x 4 (5); best motor response- obeys commands (6). --20:53 Joya Ledezma R.N. 18:00 01/29/17. BP: 148/50. HR: 65. RR: 16. O2 saturation: 100%. Temp: 98.4 F. Pain level now: 0/10. --20:53 Joya Ledezma R.N. Locked/Released at 01/29/2017 20:55 by Joya Ledezma R.N.
--- NOTE | 2017-01-29 17:27 | ED CLINICAL REPORT ---
Clinical Report - Physicians/Mid Levels [facility] [address] [place] [address] 01/29/2017 11:17 Patient: ANTOINETTE KAUR Time Seen: 11:33. Arrived- By private vehicle. Historian- patient. HISTORY OF PRESENT ILLNESS Chief Complaint: WEAKNESS. The patient has had generalized weakness, (for about 1 week). She has had tingling of the right arm, (since this morniong). She has had difficulty with speech (struggling to find words). No visual disturbance. She has had difficulty walking ("my whole body"). It has been associated with weakness. This started yesterday and is still present and now worse. It was gradual in onset and has been constant and waxing/waning. At its maximum deficit described as mild. When seen in the E.D., deficit described as mild. No dizziness or seizure. She has had altered mental status. She has been confused, had trouble concentrating and "felt strange". She has had one blackout. Usually is alert and oriented X3. Similar symptoms previously: None. REVIEW OF SYSTEMS No chills, fever, sweats, calf pain or chest pain. No cough, difficulty breathing, palpitations, abdominal pain or black stools. No bloody stools, constipation, diarrhea, nausea or vomiting. The patient has had fatigue and diabetic symptoms, including polyuria and fatigue. She has had mild pedal edema involving the right and left leg. No similar episodes of swelling feet previously. She has had urgency and hesitancy. No painful urination. She has had severe depression (for 1 week). She has had a poor appetite but not had suicidal ideation, a suicidal plan or trouble sleeping. Her family report that she snores and they describe events with her breathing when she sleeps consistent with apnea. She says that she is always exhausted and her family says that she frequently falls asleep during the day. All systems otherwise negative, except as recorded above. PAST HISTORY ( PCP - Elder). Problems: Anemia. Allergic Reaction. COPD - Chronic Obstructive Pulmonary Disease. Fall. Contusion. Bronchitis. GI Disease. Myofascial Strain. Tetanus Status. Neck Pain. Dyspnea. URI. Pneumonia. UTI - Urinary Tract Infection. Hypertension. Gastroesophageal Reflux Disease. Additional Surgeries: Appendectomy. Cholecystectomy. Hysterectomy. Knee Surgery. Oophorectomy. Salpingectomy. Surgeries on both legs. Tonsillectomy & Adenoidectomy. Medications: AmLODIPine Besylate Oral 5 mg, 2x a day. Benazepril HCl Oral 40mg , daily. Flovent HFA Inhalation 220 mcg, 2x a day. Gabapentin Oral 300 mg, 1 in am, 3 at HS. Potassium Chloride ER Oral (Tablet Extended Release 10 meq) 1 tablet, daily Hydrochtisone 2.5% cream BID , 2x a day. Pro-Air 2 puffs every 4-6 hours . Naltrexone took 1 tablet about 10am ((daughters meds) ). Doesn't remember- [facility] [place]. Allergies: Darvocet-N 50. Percocet. SOCIAL HISTORY Former smoker, end date 1997. Regular alcohol use; consumes six wine weekly. No drug use. Is a local resident. She lives with spouse. Has good social support. FAMILY HISTORY Diabetes in first-degree relative (mother). ADDITIONAL NOTES The nursing notes have been reviewed. PHYSICAL EXAM Vital Signs: 01/29/2017 11:17 BP: 151/102. HR: 63. RR: 22. O2 saturation: 95%. Temp: 98.3 F. Pain level now: 4/10. Have been reviewed. Appearance: Alert. Eyes: Pupils equal, round and reactive to light. ENT: Pharynx normal. Neck: Normal inspection. CVS: Normal heart rate and rhythm. Heart sounds normal. Respiratory: No respiratory distress. Decreased air movement. Abdomen: Soft and nontender. No organomegaly. Obese. Back: Normal inspection. Skin: Skin warm and dry. Normal skin color. Normal skin turgor. Extremities: Extremities exhibit normal ROM. No calf tenderness. No lower extremity edema. Neuro: Alert. Oriented X 3. Cranial nerves normal (as tested). No cerebellar findings. No motor deficit. No sensory deficit. LABS, X-RAYS, AND EKG EKG: Rate: 55. Bradycardia. Changes present when compared to prior EKG. (17 January 2016at that time her heart rate was 71. No bradycardia was evident then.). Chest X-ray: No acute disease. The X-rays were independently viewed by me. MRI Brain: Note- IMPRESSION: 1. No MRI evidence of acute intracranial process. 2. Age related involutional and mild white matter changes of chronic microvascular ischemia. Study type: The study was interpreted by the radiologist and contemporaneously by me. Note - Special Studies: Bilateral carotid Doppler studies - revealed no significant stenosis and minimal plaque bilaterally she was also noted to have bilateral antegrade vertebral artery flow. Laboratory Tests: UA-Culture if indicated: (GOKUL: 01/29/2017 12:40) ( MsgRcvd 01/29/2017 13:12) Final results Test Result Flag Units (Reference) URINE COLOR YELLOW URINE APPEARANCE CLEAR URINE GLUCOSE NEGATIVE (NEGATIVE) URINE BILIRUBIN NEGATIVE (NEGATIVE) URINE KETONE NEGATIVE (NEGATIVE) URINE SPECIFIC GRAVITY >= 1.030 (1.010-1.030) URINE PH 5.5 (5.0-8.0) URINE PROTEIN NEGATIVE (NEGATIVE) URINE UROBILINOGEN 0.2 EU/dL (0.2-1.0) URINE NITRITE NEGATIVE (NEGATIVE) URINE BLOOD NEGATIVE (NEGATIVE) URINE LEUK ESTERASE NEGATIVE (NEGATIVE) URINE RBC NONE SEEN rbc/hpf (0-1) URINE WBC 1-3 wbc/hpf (0-1) URINE EPITHELIAL CELLS 5-10 EPI/hpf (0-5) URINE BACTERIA TRACE (<1+) (NONE SEEN) URINE COMMENT CULT NOT INDICATED URINE CULTURES ARE SET-UP BASED ON THE FOLLOWING CRITERIA:POSITIVE NITRITEPOSITIVE LEUKOCYTE ESTERASEGREATER THAN 10 WHITE BLOOD CELLSMODERATE (2+) OR GREATER BACTERIA CBC w Diff: (GOKUL: 01/29/2017 11:25) ( MsgRcvd 01/29/2017 11:52) Final results Test Result Flag Units (Reference) WHITE BLOOD COUNT 8.8 K/uL (4.5-11.5) RED BLOOD COUNT 4.06 M/uL (4.00-5.20) HEMOGLOBIN 10.5 L gm/dL (12.0-16.0) HEMATOCRIT 32.9 L % (36.0-46.0) MEAN CELL VOLUME 81 fL (80-100) MEAN CORPUSCULAR HGB 26 pg (26-34) MEAN CORPUSCULAR HGB CONC 32 g/dL (31-37) RED CELL DISTRIBUTION WIDTH 15.7 H % (11.6-14.8) PLATELET COUNT 307 K/uL (150-400) NEUTROPHIL % 52.8 % (50-75) LYMPH % 34.6 % (25-40) MONO % 8.2 % (3-14) EOSINOPHIL % 3.8 % (0-4) BASOPHIL % 0.6 % (0-2) PT with INR: (GOKUL: 01/29/2017 11:25) ( [facility] 01/29/2017 12:05) Final results Test Result Flag Units (Reference) INR 0.9 (0.8-1.2) Low Intensity Therapy: INR 1.5-2.0 PT range 18.5-23.1Mod.Intensity Therapy: INR 2.0-3.0 PT range 23.1-31.5High Intensity Therapy: INR 2.5-3.5 PT range 27.4-35.5High Intensity Therapy 2: INR 3.0-4.0 PT range 31.5-39.3 APTT 28 SECONDS (24-34) Urine Drug Screen: (GOKUL: 01/29/2017 12:40) ( [facility] 01/29/2017 13:49) Final results Test Result Flag Units (Reference) AMPHETAMINE/METHAMPHETAMINE NEGATIVE (NEGATIVE) BARBITURATE NEGATIVE (NEGATIVE) BENZODIAZEPINE NEGATIVE (NEGATIVE) CANNABINOID NEGATIVE (NEGATIVE) COCAINE NEGATIVE (NEGATIVE) ECSTASY NEGATIVE (NEGATIVE) METHADONE NEGATIVE (NEGATIVE) OPIATE NEGATIVE (NEGATIVE) The urine drug screen is a qualitative screening test fordrug overdose and abuse. All screen results should beconsidered as presumptive.Drugs screened for are as follows:BenzodiazepinesCocaineAmphetamines/MetamphetaminesTHC (Tetrahydrocannabinol)OpiatesBarbituratesEcstasyMethadonePositive results are unconfirmed. For confirmation, notifythe lab for the specimen to be sent to the reference lab.All confirmations must be performed by a differentmethodology.The ingestion of natural herbal and plant productscontaining Ephedra/Ephedra metabolites can produce in urineone or more substances capable of cross reacting withamphetamine/methamphetamine immunoassays. These testsprovide a preliminary result only. A more specificalternative chemical method must be used to obtain aconfirmed analytical result. CMP: (GOKUL: 01/29/2017 11:25) ( MsgRcvd 01/29/2017 12:20) Final results Test Result Flag Units (Reference) GLUCOSE 126 H mg/dL (70-110) BUN 34 H mg/dL (7-18) CREATININE 2.3 H mg/dL (0.6-1.3) Estimated GFR 22.03 mL/min Estimated GFR- 26.70 mL/min Note: Persistent reduction over 3 months in eGFR<60 mL/min/1.73 m2 defines CKD. Patients with eGFR values>=60 mL/min/1.73 m2 may also have CKD if evidence ofpersistent proteinuria. Additional information may be foundat www.kidney.org. SODIUM 140 mmol/L (136-145) POTASSIUM 4.2 mmol/L (3.5-5.1) CHLORIDE 102 mmol/L (98-107) CARBON DIOXIDE 27 mmol/L (21-32) CALCIUM 9.1 mg/dL (8.5-10.1) TOTAL PROTEIN 7.0 g/dL (6.4-8.2) ALBUMIN 3.2 L g/dL (3.3-5.0) BILIRUBIN, TOTAL 0.4 mg/dL (0.0-1.0) ALKALINE PHOSPHATASE 118 H U/L (46-116) AST (SGOT) 13 L U/L (15-37) ALT (SGPT) 11 L U/L (12-78) LIPASE 332 U/L (73-393) AMYLASE 61 U/L (25-115) CPK 72 U/L (24-260) TROPONIN I <0.05 ng/mL (0.00-1.5) TROPONIN REFERENCE RANGE:<0.1 NEGATIVE0.1-1.5 INDETERMINANT>1.5 POSITIVE . PROGRESS AND PROCEDURES Course of Care: Patient is stable. Patient/family counseled. Old medical records ordered. Disposition: Discharged. Condition: stable. CLINICAL IMPRESSION Mild anemia. Adjustment disorder with depressed mood. Mild nausea. Generalized weakness. Chronic renal insufficiency. Obstructive sleep apnea INSTRUCTIONS (talk with your doctor about whether he would benefit from a sleep study to further evaluate for obstructive sleep apnea as discussed.). Warnings: Further evaluation is necessary. GENERAL WARNINGS: Return or contact your physician immediately if your condition worsens or changes unexpectedly, if not improving as expected, or if other problems arise. Your Current Medications: STOP TAKING THE FOLLOWING MEDICATIONS: Naltrexone took 1 tablet about 10am * : (daughters meds). CONTINUE TAKING THE FOLLOWING MEDICATIONS: AmLODIPine Besylate Oral : 5 mg 2x a day. Benazepril HCl Oral : 40mg daily. Flovent HFA Inhalation : 220 mcg 2x a day. Gabapentin Oral : 300 mg 1 in am, 3 at HS. Hydrochtisone 2.5% cream BID * : 2x a day. Potassium Chloride ER Oral : Tablet Extended Release 10 meq, 1 tablet daily. Pro-Air 2 puffs every 4-6 hours *. Prescription Medications: Zofran 4 mg: Take 1 orally every six hours as needed for nausea/vomiting. Dispense ten (10). No refills. Substitution is permissible. Follow-up: Follow up with your doctor Dr. Friedman tomorrow. Call for an appointment. Follow up with a psychiatrist and neurologist- as recommended by your primary care physician. Understanding of the discharge instructions verbalized by patient and family. (Electronically signed by Luis Brewer MD 01/29/2017 21:27)
--- NOTE | 2017-01-29 21:27 | ED MED RECONCILIATION SUMMARY ---
Patient: ANTOINETTE KAUR A Medication Reconciliation Report [facility] VisitID: [id number] [address] [place] [address] 76y, F Registration Date/Time: 01/29/2017 Weight: 106.5 kg Height/Length: 62 in. BMI: 43.0 ALLERGIES: Darvocet-N 50, Percocet The patient's Home Medications are listed below: STOP TAKING THE FOLLOWING MEDICATIONS: Naltrexone took 1 tablet about 10am , (daughters meds) CONTINUE TAKING THE FOLLOWING MEDICATIONS: AmLODIPine Besylate Oral 5 mg, 2x a day Benazepril HCl Oral 40mg , daily Flovent HFA Inhalation 220 mcg, 2x a day Gabapentin Oral 300 mg, 1 in am, 3 at HS Hydrochtisone 2.5% cream BID , 2x a day Potassium Chloride ER Oral (10 meq) 1 tablet, daily Pro-Air 2 puffs every 4-6 hours THE FOLLOWING MEDICATIONS NEED TO BE RECONCILED: Doesn't remember- call [facility] [place] The source(s) of the original Home Medication information: Not obtained. The following Medications were given to the patient in the Emergency Department: None. The following Medications were prescribed to the patient: Zofran 4 mg: Take 1 orally every six hours as needed for nausea/vomiting. Dispense ten (10). No refills. Substitution is permissible. -- Luis Brewer MD
--- NOTE | 2017-01-29 21:27 | ED MAR SUMMARY ---
..... Medication Administration Record [facility] [address], [place] [id number] Patient: ANTOINETTE KAUR Visit ID: [id number] 76y, F Weight: 106.5 kg Height/Length: 62 in BMI: 43 ALLERGIES: Darvocet-N 50, Percocet
--- NOTE | 2017-01-29 21:27 | ED MED RECONCILIATION SUMMARY ---
Patient: ANTOINETTE KAUR A Medication Reconciliation Report [facility] VisitID: [id number] [address] [place] [address] 76y, F Registration Date/Time: 01/29/2017 Weight: 106.5 kg Height/Length: 62 in. BMI: 43.0 ALLERGIES: Darvocet-N 50, Percocet The patient's Home Medications are listed below: STOP TAKING THE FOLLOWING MEDICATIONS: Naltrexone took 1 tablet about 10am , (daughters meds) CONTINUE TAKING THE FOLLOWING MEDICATIONS: AmLODIPine Besylate Oral 5 mg, 2x a day Benazepril HCl Oral 40mg , daily Flovent HFA Inhalation 220 mcg, 2x a day Gabapentin Oral 300 mg, 1 in am, 3 at HS Hydrochtisone 2.5% cream BID , 2x a day Potassium Chloride ER Oral (10 meq) 1 tablet, daily Pro-Air 2 puffs every 4-6 hours THE FOLLOWING MEDICATIONS NEED TO BE RECONCILED: Doesn't remember- call [facility] [place] The source(s) of the original Home Medication information: Not obtained. The following Medications were given to the patient in the Emergency Department: None. The following Medications were prescribed to the patient: Zofran 4 mg: Take 1 orally every six hours as needed for nausea/vomiting. Dispense ten (10). No refills. Substitution is permissible. -- Luis Brewer MD
--- NOTE | 2017-01-29 21:27 | ED DISCHARGE INSTRUCTIONS ---
Patient: ANTOINETTE KAUR General Instructions [facility] VisitID: [id number] [place] [address] 76y, F Registration Date/Time: 01/29/2017 Mild anemia. Adjustment disorder with depressed mood. Mild nausea. Generalized weakness. Chronic renal insufficiency. Obstructive sleep apnea INSTRUCTIONS (talk with your doctor about whether he would benefit from a sleep study to further evaluate for obstructive sleep apnea as discussed.). Warnings: Further evaluation is necessary. GENERAL WARNINGS: Return or contact your physician immediately if your condition worsens or changes unexpectedly, if not improving as expected, or if other problems arise. Your Current Medications: STOP TAKING THE FOLLOWING MEDICATIONS: Naltrexone took 1 tablet about 10am * : (daughters meds). CONTINUE TAKING THE FOLLOWING MEDICATIONS: AmLODIPine Besylate Oral : 5 mg 2x a day. Benazepril HCl Oral : 40mg daily. Flovent HFA Inhalation : 220 mcg 2x a day. Gabapentin Oral : 300 mg 1 in am, 3 at HS. Hydrochtisone 2.5% cream BID * : 2x a day. Potassium Chloride ER Oral : Tablet Extended Release 10 meq, 1 tablet daily. Pro-Air 2 puffs every 4-6 hours *. Prescription Medications: Zofran 4 mg: Take 1 orally every six hours as needed for nausea/vomiting. Dispense ten (10). No refills. Substitution is permissible. Follow-up: Follow up with your doctor Dr. Friedman tomorrow. Call for an appointment. Follow up with a psychiatrist and neurologist- as recommended by your primary care physician. Understanding of the discharge instructions verbalized by patient and family. ADDITIONAL INFORMATION Adjustment Disorder An adjustment disorder is a condition that results from having a hard time coping with the normal stresses of life. You may feel you have too much to do and cant get it all done. These feelings may be triggered by divorce, job loss, someone you know dying, or by a positive event like getting a new job or getting . These feelings may interfere with your relationships at home and at work. With this condition, it is common to feel sad, guilty, hopeless and restless. These feelings may continue for weeks or months. It can be helpful to identify what is causing the additional stress and takes steps to get extra support. If new stressful events do not occur, it is likely that you will start feeling better within six months. Home Care: If you have been given a prescription for medicine, take it as directed. It helps to talk about your feelings and thoughts with family or friends that understand and support you. Follow Up with your doctor or therapist as advised by our staff. Let them know if this condition lasts more than six months without sign of improvement. For more information, contact the National [place] [employer]ness at 020-772-6795 or visit www.amina.org. Get Prompt Medical Attention if any of the following occur: Worsening depression or anxiety Feeling out of control Thoughts of harming yourself or another Being unable to care for yourself Anemia [Type Not Specified, Adult] Red blood cells carry oxygen to the tissues of the body. Anemia is a condition where the size or number of red blood cells in the body is reduced. Iron is needed to make red blood cells. The most common cause of anemia is iron deficiency. This may be due to: i) Blood loss (heavy menstrual periods or bleeding from the stomach or intestines); or, ii) Not eating enough iron-containing foods. Other causes of anemia include certain vitamin deficiencies, chronic kidney disease or certain other chronic illnesses. Anemia causes a feeling of being tired and run down. When anemia becomes severe, the skin becomes pale and there is shortness of breath with exertion. Headaches, dizziness, leg cramps with exertion, drowsiness and fatigue are other common symptoms. Home Care: If you are having symptoms of anemia listed above: -- Do not overexert yourself. -- Talk to your doctor before flying on an airplane or traveling to high altitudes. Follow Up with your doctor as advised by our staff. Additional blood testing may be required to determine the exact cause of your anemia. If testing was done on this visit, it may take several days to get all of the results. You may call this facility or follow up with your own doctor to get the results. Get Prompt Medical Attention if any of the following occur: -- Shortness of breath or chest pain -- Worsening of dizziness, fainting -- Vomiting blood or passing red or black-colored stool Renal Insufficiency The role of the kidneys is to remove waste products and excess water from the body. When the kidneys do not function normally, waste products build up in the blood.The early stage of this process is called renal insufficiency . If renal insufficiency worsens it can lead to chronic renal failure. This allows excess water, waste and toxic substances to build up in the body. This can become a threat to life, requiring dialysis or a kidney transplant to stay alive. Diabetes is the leading causes of renal insufficiency. Other causes include high blood pressure, hardening of the arteries, lupus, inflammation of the blood vessels (vasculitis), prior viral and bacterial infections, and others. Certain wpnx-szr-vcyecxy pain medicines can cause renal failure when taken often over a long period of time. These include aspirin, ibuprofen (Advil, Motrin) and related anti-inflammatory medicines. Home Care: If you have diabetes, talk to your doctor about the quality of your blood sugar control.Ask about any changes needed to your diet or medicines. If you have high blood pressure: Take your blood pressure medicine. Take up a regular exercise program that you enjoy.Check with your doctor to be sure your planned exercise program is right for you. Reduce your salt (sodium) intake.Your doctor can tell you how much salt per day is safe for you. If you are overweight, talk to your doctor about a weight loss plan. If you smoke, you must quit.Smoking worsens kidney disease.Talk to your doctor about ways to help you quit.For more information, visit the following links: www.smokefree.gov/pubs/clearing_the_air.pdf www.smokefree.gov www.quitnet.com Talk to your doctor about any dietary restrictions advised. In general, it is advisable to limit protein, salt, potassium and phosphorus.Avoid excess fluids. Do not add salt at the table and avoid salty foods.A calcium supplement may be prescribed to protect your bones from osteoporosis. Avoid the following over the counter medicines, or consult your doctor before using: Aspirin and anti-inflammatory drugs such as ibuprofen (Advil, Motrin), naprosyn (Aleve); [Short term use of acetaminophen (Tylenol) for fever or pain is okay.] Laxatives and antacids containing magnesium or aluminum (Mylanta, Maalox) Avoid Fleet or phosphosoda enemas which contain phosphorus Certain stomach acid-blocking medicine such as cimetidine (Tagamet), ranitidine (Zantac) Decongestants containing pseudoephedrine (such as some forms of Sudafed or Actifed) Herbal supplements Follow Up with your doctor or as advised by our staff. Contact one of the following for more information. [place] [phone] www.aakp.org National Kidney Foundation www.kidney.org Return Promptly or contact your doctor if any of the following occurs: Nausea or vomiting Severe weakness, dizziness, fainting, drowsiness or confusion Chest pain or shortness of breath Unexpected weight gain or swelling in the legs, ankles or around the eyes Heart beating fast, slow or irregularly Decrease or loss in urine output Sleep Apnea[Adult] Sleep Apnea (also calledObstructive Sleep Apnea) is a condition where there are long pauses between breaths during sleep. This usually occurs when the tissues and muscles in the back of the throat relax too much during sleep. This causes the air passage in your throat to narrow or block off completely. Breathing slows down or stops completely and you then wake up, take a few good breaths and fall back to sleep again. There may be 10-60 such awakenings during a night. This prevents you from getting to the deeper stages of sleep that are needed for the body to rest and recover its strength. During sleep, loud snoring, noisy breathing or gasping sounds are common. The sleep disturbance causes daytime symptoms such as difficulty getting up in the morning, need for daytime naps, irritability, poor concentration and attention. CausesOf Sleep Apnea The main risk factor for this kind of sleep apnea is excessive weight gain. Fatty tissue gathers along the sides of the throat causing the air passage to be more narrow than normal. Increasing age is another factor due to softening of the air passage. Certain neck and jaw shapes are prone to a narrow air passage (such as receding chin) Enlarged tonsils and adenoids may block the air passage when lying down Severe nasal congestion Use of alcohol or sedatives relaxes the muscles in the throat. Smoking can cause inflammation and swelling in the upper air passages and make this problem worse. Home Care Sleep with your head and neck in a straight or neutral position. If the neck falls back or forward too far this can block breathing. Limit the use of alcohol and sedatives in the evening. Follow Up with your doctor as advised. If you are overweight, talk to your doctor about a weight loss program. If you smoke, talk to your doctor about ways to help you stop. Get Prompt Medical Attention if any of the following occur: Longer pauses than usual Unable to awaken Seizure Weakness [Uncertain Cause] Based on your exam today, the exact cause of your weakness is not certain. However, your weakness does not seem to be a sign of a serious illness at this time. Sometimes the signs of a serious illness take more time to appear. Therefore, please watch for the warning signs listed below. Home Care: 1) Rest at home today. Do not over-exert yourself. 2) Take your medicine as prescribed. 3) For the next few days, drink extra fluids (unless your doctor wants you to restrict fluids for other reasons). Do not skip meals. Follow Up with your doctor or as advised if you are not starting to feel better within TWO days. Get Prompt Medical Attention if any of the following occur: Worsening of your symptoms Chest, arm, neck, jaw or upper back pain Dizziness or fainting Trouble breathing Unable to eat or drink normal amounts Nausea, frequent vomiting, frequent diarrhea Abdominal pain Numbness or weakness of the face, one arm or one leg Slurred speech, confusion, trouble speaking, walking or seeing Blood in vomit or stool (black or red color) Fever of 100.4 F (38 C) or higher, or as directed by your healthcare provider Ondansetron Oral disintegrating tablet What is this medicine? ONDANSETRON (on ERLIN se honey) is used to treat nausea and vomiting caused by chemotherapy. It is also used to prevent or treat nausea and vomiting after surgery. How should I use this medicine? These tablets are made to dissolve in the mouth. Do not try to push the tablet through the foil backing. With dry hands, peel away the foil backing and gently remove the tablet. Place the tablet in the mouth and allow it to dissolve, then swallow. While you may take these tablets with water, it is not necessary to do so. Talk to your certified medical assistant regarding the use of this medicine in children. Special care may be needed. What side effects may I notice from receiving this medicine? Side effects that you should report to your doctor or health client care specialist as soon as possible: allergic reactions like skin rash, itching or hives, swelling of the face, lips, or tongue breathing problems dizziness fast or irregular heartbeat feeling faint or lightheaded, falls fever and chills swelling of the hands and feet tightness in the chest Side effects that usually do not require medical attention (report to your doctor or health client care specialist if they continue or are bothersome): constipation or diarrhea headache What may interact with this medicine? Do not take this medicine with any of the following medications: -apomorphine -cisapride -dofetilide -dronedarone -pimozide -thioridazine -ziprasidone This medicine may also interact with the following medications: -carbamazepine -phenytoin -rifampicin -tramadol -other medicines that prolong the QT interval (cause an abnormal heart rhythm) What if I miss a dose? If you miss a dose, take it as soon as you can. If it is almost time for your next dose, take only that dose. Do not take double or extra doses. Where should I keep my medicine? Keep out of the reach of children. Store between 2 and 30 degrees C (36 and 86 degrees F). Throw away any unused medicine after the expiration date. What should I tell my health care provider before I take this medicine? They need to know if you have any of these conditions: heart disease history of irregular heartbeat liver disease low levels of magnesium or potassium in the blood an unusual or allergic reaction to ondansetron, granisetron, other medicines, foods, dyes, or preservatives or trying to get breast-feeding What should I watch for while using this medicine? Check with your doctor or health client care specialist as soon as you can if you have any sign of an allergic reaction. You have been given the following additional information: Adjustment Disorder Anemia, Type Not Specified (Adult) Renal Insufficiency Sleep Apnea, Obstructive (Adult) Weakness, Unk Cause Ondansetron Oral disintegrating tablet (Electronically signed by Luis Brewer MD 01/29/2017 21:27)
--- NOTE | 2017-01-29 21:27 | ED MAR SUMMARY ---
..... Medication Administration Record [facility] [address] [place], [place] [id number] Patient: ANTOINETTE KAUR Visit ID: [id number] 76y, F Weight: 106.5 kg Height/Length: 62 in BMI: 43 ALLERGIES: Darvocet-N 50, Percocet
== END 2017-01-29 18:10 | disposition home or self-care (01) ==
LOC: ED SRH 11:18
DX: R53.1 Weakness (principal); G47.33 Obstructive sleep apnea (adult) (pediatric); I12.9 Hypertensive chronic kidney disease with stage 1 through stage 4 chronic kidney disease, or unspecified chronic kidney disease; N18.9 Chronic kidney disease, unspecified; D64.9 Anemia, unspecified; F43.21 Adjustment disorder with depressed mood; R11.0 Nausea; J44.9 Chronic obstructive pulmonary disease, unspecified; K21.9 Gastro-esophageal reflux disease without esophagitis; Z79.51 Long term (current) use of inhaled steroids
CPT/HCPCS: 81460; 90004; 90100; 90616; 92235; 92530; 92610; 92760; 92761; 92762; 92763; 92764; 92765; 92766; 92767; 94001; 94060; 95059